=== PATIENT | male | born 1945 | race Caucasian/White ===

== ENCOUNTER 2017-03-04 11:55 | Day surgery (SDC) | payer MEDICARE ==
--- NOTE | 2017-03-04 09:07 | HP ---
DATE OF SURGERY: 04/03/2017 HISTORY OF PRESENT ILLNESS: The patient is a 71 year-old who had basal cell carcinoma of the scalp, nonhealing lesion left arm in need of wide excision. PAST MEDICAL HISTORY: Hypertension, heart disease. 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 PAST SURGICAL HISTORY: PTCA and stent placement in the past. MEDICATIONS: Amlodipine, Coreg, aspirin, Klor-Con, lisinopril, Nitro-Stat PRN. ALLERGIES: NKDA. FAMILY HISTORY: Negative in regards to this problem. Hypertension in the family. SOCIAL HISTORY: No smoking. Reports occasional alcohol use. REVIEW OF SYSTEMS: Twelve systems reviewed per admission assessment. No chest pain or palpitations other systems negative or noncontributory as above and per preadmission questionnaire. PHYSICAL EXAMINATION: GENERAL: No acute distress. HEENT: Sclerae nonicteric. Scalp has got anterior and posterior irregular ulcerated areas that had been biopsied and noted to be squamous cell carcinoma. NECK: No JVD. CHEST: Clear to auscultation, equal excursion, nonlabored breathing. CVS: Regular rate and rhythm. ABDOMEN: Soft, nondistended. EXTREMITIES: No edema. Shoulder area ulcerated, biopsy site margin involvement. NEURO: Alert, moving extremities symmetrically. No gross motor deficits noted. IMPRESSION: Basal and squamous cell carcinoma with recent biopsy in Dr. Driscoll's office. I feel he would benefit from wide excision of these two separate scalp areas, possible skin graft as well as excisional biopsy of ulcerated nonhealing lesion left arm or shoulder area, possible skin graft. Basal and squamous cell carcinoma scalp and shoulder or arm area. I feel he would benefit from excisional biopsy. Risks and benefits explained in detail including but not limited to bleeding or infection, possible need for skin graft, possible need for flap, risk of nonhealing of the graft or wound possibly requiring healing by secondary intent or other procedures, risk of involved margins possibly requiring wider excision, general risk of anesthesia or sedation, risk of deep venous thrombosis, pulmonary embolism, pneumonia, risk of cardiopulmonary event given his comorbidities but not limited to. He understands and agrees to the planned procedure will proceed with excisional biopsy of two scalp sites and left arm or shoulder area as an outpatient, possible skin graft.
[~2017-03-04 11:55] MED LIST: Lactated Ringers 1,000 ML IV ONE; Lactated Ringers 1,000 ML IV SCH; MINERAL OIL LIGHT 10 ML FOR SURGERY ONE; Sensorcaine 0.25% 10 ML ONE
[2017-03-04] MEDS ORDERED: Decadron 4 MG INJ IV ONE (11:56)
[2017-03-04] MEDS ORDERED: DIPRIVAN 200 MG/20 ML IV ONE (11:56)
[2017-03-04] MEDS ORDERED: Quelicin Fliptop 200 MG/10 ML IJ ONE (11:56)
[2017-03-04] MEDS ORDERED: TORAdol 30 mg Injection IJ ONE (11:56)
[2017-03-04] MEDS ORDERED: Zofran 4 MG/2 ML VIAL IV ONE (11:56)
[2017-03-04] MEDS ORDERED: DILAUDID 2 MG INJECTION IV ONE (11:56)
[2017-03-04] MEDS ORDERED: SUBLIMAZE 100 MCG/2 ML IV ONE (11:56)
[2017-03-04 13:04] LABS: ANION GAP 13.3 MEQ/L (5-15); BLOOD UREA NITROGEN 23 mg/dL (9-20); CHLORIDE 105 mEq/L (98-107); Carbon Dioxide 26.6 mEq/L (21-32); Glucose 105 MG/DL (70-110); Potassium 4.6 mEq/L (3.5-5.1); SODIUM 140 mEq/L (136-145)
[2017-03-04] MEDS ORDERED: CEFAZOLIN 2 GM-D5W BAG** 2 GM/50 ML ML IV ONE (14:00)
[2017-03-04] MEDS ORDERED: BACIGUENT 30 GM ONE (15:35)
[2017-03-04 17:18] VITALS: BP 137/73; PULSE 57; O2SAT 96
--- NOTE | 2017-03-05 09:51 | OP ---
SURGERY DATE/TIME: 03/04/2017 1421 PREOPERATIVE DIAGNOSES: 1) History of squamous cell carcinoma on the scalp nonhealing area x2 with additional suspicious nonhealing area on the scalp in need of wide excision. 2) Basal cell carcinoma left upper extremity. POSTOPERATIVE DIAGNOSES: 1) History of squamous cell carcinoma on the scalp nonhealing area x2 with additional suspicious nonhealing area on the scalp in need of wide excision. 2) Basal cell carcinoma left upper extremity path pending. PROCEDURES: 1) Excisional biopsy of left upper extremity nonhealing basal cell carcinoma biopsy site approximately 3.5 to 4 cm with margins with intermediate closure with local advancement flaps. 2) Excisional biopsy of approximately 2.5 cm posterior superior scalp nonhealing lesion approximately 2.5 cm with margins with intermediate closure. 3) Excisional biopsy of posterior-inferior nonhealing scalp lesion biopsy site approximately 2 cm with intermediate closure. 4) Excisional biopsy of anterior nonhealing scalp squamous cell carcinoma biopsy site approximately 2 cm with margins with intermediate closure. SURGEON: Dr. Juan Hatfield. ANESTHESIA: General. ESTIMATED BLOOD LOSS: Minimal. INDICATIONS: As noted above. Risks and benefits explained in detail and not limited to and consent obtained. DESCRIPTION OF PROCEDURE AND FINDINGS: The site on the left arm was about 3.5 to 4 cm with margins as well identified and marked. The anterior scalp lesion identified. The posterior scalp area that had been biopsied which is squamous cell carcinoma with involved margins as well as another suspicious nonhealing area in question were all marked and confirmed with the patient in the preoperative holding area. The patient is taken to the operating room. General anesthesia was introduced. He was then placed in lateral position, appropriate padding and positioned per anesthesia staff. Prepped and draped in usual sterile fashion. After official time out and no disagreement with planned procedure, starting first with the arm dissection was carried out around normal appearing tissue around this large area in the left arm dissecting down to normal appearing subcutaneous tissue beneath. This resulted in a spindle-shaped long incision approximately 10.5 to 12 cm with the specimen itself with margins was about 3.5 to 4 cm in longest dimension of the specimen including the margins. Otherwise dissection was carried down in spindle-shaped dissecting off to underlying normal appearing fascia. The specimen is passed off. The wound was then closed in interrupted fashion advancing the local flaps back towards the midline undermining advancing back towards the midline with interrupted 3-0 Vicryl to close the deep superficial subcu, skin closed with 4-0 Vicryl, interrupted 3-0 Prolene used to reinforce the area. Steri-Strips and sterile dressing applied. The patient tolerated this part of the procedure well. Attention was then turned to the scalp. New instruments and gloves were obtained. First starting with the questionable area on posterior scalp marking out to normal appearing skin as he had available. It should be noted that his whole scalp was dry, scaly and had chronic sun changes. Dissecting out around these two different areas, these posterior-superior and posterior-inferior sites dissecting out in spindle-shaped fashion resulting in a specimen with margin of 2.5 cm of the posterior-superior nonhealing lesion with the more inferior-posterior lesion was about 2 cm in sized. Dissection was carried down to normal appearing fascia underneath. Some perforators controlled 3-0 Vicryl suture ligature with good hemostasis noted. The specimen was passed off. Again, 2 cm posterior-inferior nonhealing lesion biopsy site, 2.5 cm posterior-superior nonhealing biopsy site. At this point hemostasis controlled perforations with 3-0 Vicryl. Good hemostasis noted. The wound then closed with interrupted 3-0 Vicryl closing the deep subcu and deep dermis advancing the flaps back towards the midline with the skin then closed in interrupted vertical mattress 3-0 Prolene. Sterile dressings were applied on each of these areas at the end of the case. Attention is then turned to the anterior scalp area. There is definitely well visualized squamous cell carcinoma lesion to begin with but the area around it was quite vague. Dissecting out around this definite abnormal lesion dissection in spindle-shaped fashion resulting in a specimen with margins of approximately 2 cm. Dissection carried down circumferentially around this area taking off the underlying fascia and passed off. Perforations controlled with 3-0 Vicryl with good hemostasis noted and interrupted 3-0 Vicryl used to close the subcu and deep dermis advancing the flaps back towards the midline which were then closed with interrupted 3-0 Vicryl. The skin is closed with interrupted 3-0 and 2-0 Prolene in an interrupted vertical mattress fashion. Antibiotic ointment and sterile dressing applied. The patient tolerated the procedure well. There were no immediate complications. Findings discussed with the family out in the waiting area. They were counseled the skin grafts had been avoided but these areas were tight and there is a risk of dehiscence possibly requiring healing by secondary intent. Otherwise at this time I will see him back in the office and possibly remove some of the sutures and then remove any remainder possibly the following week.
== END 2017-03-04 17:32 | disposition home or self-care (01) ==
LOC: SDC 11:55
PROVIDERS: ATTEND Surgery
PROC: 0HQ0XZZ Repair Scalp Skin, External Approach (ICD-10-PCS; principal; 2017-03-04)
PROC: 0HB0XZZ Excision of Scalp Skin, External Approach (ICD-10-PCS; 2017-03-04)
DX: C44.619 Basal cell carcinoma of skin of left upper limb, including shoulder (principal); L98.9 Disorder of the skin and subcutaneous tissue, unspecified; Z85.828 Personal history of other malignant neoplasm of skin
CPT/HCPCS: 00300; 00400; 36415; 80048; 88305; 93005; 99100; J0330; J0690; J1100; J1170; J1885; J2405; J2704; J3010; A9270-GY